=== PATIENT | male | born 1980 | race Caucasian/White ===

== ENCOUNTER 2019-04-21 13:15 | Outpatient (CLI) | payer OTHER, SELFPAY ==
--- NOTE | ~2019-04-21 | XR_ITS ---
XR knee RT min 4V 04/21/2019 13:42 INDICATION: Right knee pain PROCEDURE: 5 views right knee COMPARISON: No prior studies for comparison. FINDINGS: Fracture, dislocation or subluxation is not identified. No significant joint effusion. The soft tissues appear within normal limits. No foreign bodies are identified. IMPRESSION: 1: NO ACUTE BONE OR JOINT ABNORMALITY IDENTIFIED. Reviewed, dictated and finalized at location A. DDLE BUG
== END 2019-04-21 13:16 | disposition home or self-care (01) ==
LOC: CHSIMG 13:20
PROVIDERS: PCP Internal Medicine; Visit Provider Nurse Practitioner Family
DX: M25.561 Pain in right knee (principal)
CPT/HCPCS: 73564

== ENCOUNTER 2021-11-01 14:16 | Outpatient (CLI) | payer OTHER, SELFPAY ==
[2021-11-01 14:35] LABS: Basophils Absolute Auto 0.04 K/mm3 (0.00-0.10); Basophils Percent Auto 0.5 % (0.0-1.0); Eosinophils Absolute Auto 0.03 K/mm3 (0.02-0.50); Eosinophils Percent Auto 0.4 % (1.0-6.0); Hematocrit 36.9 % (40.0-54.0); Hemoglobin 12.3 g/dL (14.0-18.0); Immature Granulocyte Absolute 0.01 K/mm3 (0.00-0.00); Immature Granulocyte Percent A 0.1 % (0.0-0.0); Immature Reticulocyte Fraction 1.8 % (2.0-16.52); Lymphocytes Absolute Auto 1.36 K/mm3 (1.10-4.50); Lymphocytes Percent Auto 17.2 % (18.0-42.0); Mean Corpuscular HGB Conc 33.3 g/dL (32.0-36.0); Mean Corpuscular Hemoglobin 29.5 pg (27.0-31.0); Mean Corpuscular Volume 88.5 fL (78.0-102.0); Mean Platelet Volume 9.1 fl (8.7-11.0); Monocytes Absolute Auto 0.41 K/mm3 (0.10-0.90); Monocytes Percent Auto 5.2 % (2.0-11.0); Neutrophils Percent Auto 76.6 % (50.0-70.0); Platelet Count Result 225 K/mm3 (150-420); Red Blood Count 4.17 M/mm3 (4.70-6.10); Red Cell Distribution Width 12.5 % (11.6-14.4); Reticulocyte Hemoglobin Conten 33.9 pg (28.0-35.0); Reticulocyte Percent 0.75 % (0.50-1.50); Reticulocytes Absolute 0.03 M/mm3 (0.02-0.1); White Blood Count 7.9 K/mm3 (4.8-10.8)
[2021-11-01 15:50] LABS: Creatine Kinase 335 U/L (39-308); Ferritin 57 ng/mL (26-388); Free T3 2.59 pg/mL (2.18-3.98); Iron 100 ug/dL (65-175); Lactate Dehydrogenase 189 U/L (85-227); Percent Iron Saturation 29 % (12-57); Vitamin B12 723 pg/mL (193-986)
[2021-11-01 15:51] LABS: CRP < 0.2 mg/dL (0.0-0.9)
[2021-11-01 17:33] LABS: Free T4 Free Thyroxine 0.73 ng/dL (0.76-1.46)
[2021-11-04 15:23] LABS: Methylmalonic Acid 113 nmol/L (87-318)
[2021-11-07 05:08] LABS: Aldolase 4.8 U/L (<=8.1)
== END 2021-11-01 14:17 | disposition home or self-care (01) ==
LOC: CHSLAB 14:19
PROVIDERS: PCP Internal Medicine; Visit Provider Internal Medicine
DX: R94.6 Abnormal results of thyroid function studies (principal); D64.9 Anemia, unspecified; E86.0 Dehydration
CPT/HCPCS: 36415; 82085; 82550; 82607; 82728; 83540; 83550; 83615; 83921; 84439; 84481; 85025; 85046; 86140